=== PATIENT | female | born 1975 | race Caucasian/White ===

== ENCOUNTER 2022-04-30 06:29 | Day surgery (SDC) | payer BC, OTHER ==
[2022-04-27 14:37] LABS: POTASSIUM,K 4.2 mmol/L (3.5-5.1)
[2022-04-30] MEDS ORDERED: ceFAZolin 1 GM Vial IM ONE (06:32)
[2022-04-30] MEDS ORDERED: Lactated Ringers 1,000 ML IV SCH (06:45)
[2022-04-30] MEDS ORDERED: Albuterol 0.083% 2.5 MG/3 ML Neb Soln NEB PRN (07:15)
[2022-04-30] MEDS ORDERED: Metoclopramide 10 MG/2 ML SDV IVPUSH PRN (07:15)
[2022-04-30] MEDS ORDERED: Naloxone 0.4 MG/ML SDV IVPUSH PRN (07:15)
[2022-04-30] MEDS ORDERED: Morphine 2 MG/ML SYRINGE IVPUSH PRN (07:15)
[2022-04-30] MEDS ORDERED: HYDROmorphone 1 MG/ML Syringe IVPUSH PRN (07:15)
[2022-04-30] MEDS ORDERED: Ondansetron 4 MG/2 ML SDV IVPUSH PRN ×2 (07:15→11:11)
[2022-04-30] MEDS ORDERED: Propofol 200 MG/20 ML SDV ONE (07:17)
[2022-04-30] MEDS ORDERED: Rocuronium Bromide 50 MG/5 ML Syringe ONE ×2 (07:17→08:42)
[2022-04-30] MEDS ORDERED: Sugammadex Sodium 200 MG/2 ML VIAL ONE (07:17)
[2022-04-30] MEDS ORDERED: Dexamethasone 4 MG/ML 5 ML MDV ONE (07:17)
[2022-04-30] MEDS ORDERED: Midazolam 1 MG/ML 2 ML SDV ONE (07:17)
[2022-04-30] MEDS ORDERED: Lidocaine 2% 5 ML SDV ONE (07:17)
[2022-04-30] MEDS ORDERED: fentaNYL 250 MCG/5 ML SDV ONE (07:17)
[2022-04-30] MEDS ORDERED: Methylene Blue 50 MG/10 ML Ampule ONE (07:26)
[2022-04-30] MEDS ORDERED: Bupivacaine 0.25% 30 ML SDV ONE (07:26)
[2022-04-30] MEDS ORDERED: HYDROmorphone 2 MG/ML Syringe ONE (09:05)
[2022-04-30] MEDS ORDERED: Fluorescein 5 ML Vial ONE (09:35)
[2022-04-30] MEDS ORDERED: Furosemide 40 MG/4 ML VIAL ONE (09:39)
[2022-04-30] MEDS ORDERED: Ketorolac 30 MG/ML SDV ONE (10:04)
[2022-04-30] MEDS ORDERED: Promethazine 25 MG/ML SDV IM PRN (11:11)
[2022-04-30] MEDS ORDERED: Acetaminophen/oxyCODONE 325-5 MG Tab PO PRN (11:11)
[2022-04-30] MEDS ORDERED: Ketorolac 30 MG/ML SDV IVPUSH ONE (11:11)
[2022-04-30] MEDS ORDERED: Cyanocobalamin (Vitamin B12) 1,000 MCG/ML SDV IM SCH (11:15)
[2022-04-30] MEDS: fentaNYL 50 MCG/ML SDV IVPUSH PRN ×2 (11:47→11:56)
[2022-04-30] MEDS: Acetaminophen/oxyCODONE 325-5 MG Tab PO PRN ×2 (15:34→20:21)
[2022-04-30] MEDS: Ketorolac 30 MG/ML SDV IVPUSH PRN ×2 (17:08→23:37)
[2022-04-30] MEDS ORDERED: Spironolactone 25 MG Tab PO SCH (18:00)
[2022-04-30] MEDS ORDERED: METFORMIN 750 MG PO SCH (18:00)
[2022-05-01] MEDS: Acetaminophen/oxyCODONE 325-5 MG Tab PO PRN ×2 (05:42→11:39)
[2022-05-01 07:02] LABS: CARBON DIOXIDE,CO2 28.9 mmol/L (21.0-32.0); POTASSIUM,K 3.8 mmol/L (3.5-5.1)
== END 2022-05-01 12:30 | disposition home or self-care (01) ==
LOC: MW.SDS 06:29 → MW.OB 11:12 → MW.SDS 05-01 12:30
PROVIDERS: ATTEND Obstetrics & Gynecology
DX: N81.2 Incomplete uterovaginal prolapse (principal); N84.0 Polyp of corpus uteri; N83.201 Unspecified ovarian cyst, right side; N72 Inflammatory disease of cervix uteri; N88.8 Other specified noninflammatory disorders of cervix uteri; N80.03 Adenomyosis of the uterus; N83.8 Other noninflammatory disorders of ovary, fallopian tube and broad ligament; E66.9 Obesity, unspecified; Z79.899 Other long term (current) drug therapy; Z88.2 Allergy status to sulfonamides; Z68.34 Body mass index [BMI] 34.0-34.9, adult
CPT/HCPCS: 36415; 57265; 58552; 58662; 80048; 84703; 85025; 85027; 86850; 86900; 86901; A9270; J0131; J0690; J1100; J1170; J1885; J1940; J2250; J2270; J2704; J3010; J3490; J7120; 00944; J7030